=== PATIENT | male | born 1975 | race Two or more races ===

== ENCOUNTER 2019-08-12 09:43 | Emergency (ER) | payer OTHER ==
[~2019-08-12] VITALS: Ht 167.6 cm; Wt 72.6 kg
[2019-08-12] MEDS ORDERED: IV NORMAL SALINE 1,000ML 1,000 ML IV ONE (10:00)
--- NOTE | 2019-08-12 10:03 | PHYS DOC ---
Past History Past Medical History: High Cholesterol Past Surgical History: No Surgical History Smoking: Cigarettes Alcohol Use: None Drug Use: None Adult General Chief Complaint Chief Complaint: NAUSEA/VOMITING/DIARRHEA HPI HPI 44-year-old male presents to the emergency department with complaints of feeling sick. Patient states he's had nausea and vomiting since yesterday, describes approximately 23 times. He denies any diarrhea, no fever, no chills. Patient denies any drug use or alcohol use. He does smoke tobacco. Patient denies abdominal pain on examination, no chest pain, no shortness of breath. Nothing makes symptoms worse or better Review of Systems Review of Systems Constitutional: Denies fever or chills [] HENT: Denies nasal congestion or sore throat [] Respiratory: Denies cough or shortness of breath [] Cardiovascular: No additional information not addressed in HPI [] GI: Denies abdominal pain, + nausea, vomiting : Denies dysuria or hematuria [] Musculoskeletal: Denies back pain or joint pain [] Integument: Denies rash or skin lesions [] Neurologic: Denies headache, focal weakness or sensory changes [] All other systems were reviewed and found to be within normal limits, except as documented in this note. Current Medications Current Medications Current Medications Medications (Trade) Dose Ordered Sig/Vj Start Time Stop Time Status Last Admin Dose Admin Sodium Chloride 1,000 ml @ 1,000 mls/hr 1X ONCE 08/12/19 10:00 08/12/19 10:59 UNV Physical Exam Physical Exam Constitutional: Well developed, well nourished, no acute distress, tired appearing HENT: Normocephalic, atraumatic, bilateral external ears normal, oropharynx moist, no oral exudates, nose normal. [] Eyes: PERRLA, EOMI, conjunctiva normal, no discharge. [] Neck: Normal range of motion, no tenderness, supple, no stridor. [] Cardiovascular:Heart rate regular rhythm, no murmur [] Lungs & Thorax: Bilateral breath sounds clear to auscultation [] Abdomen: Bowel sounds normal, soft, no tenderness, no masses, no pulsatile masses. [] Skin: Warm, dry, no erythema, no rash. [] Back: No tenderness, no CVA tenderness. [] Extremities: No tenderness, no cyanosis, no clubbing, ROM intact, no edema. [] Neurologic: Alert and oriented X 3, normal motor function, normal sensory function, no focal deficits noted. [] Psychologic: Affect normal, judgement normal, mood normal. [] Current Patient Data Vital Signs BP initially 88/59 however improved after IVF 1 liter 103/80. No tachycardia appreciated EKG EKG [] Radiology/Procedures Radiology/Procedures [] Course & Med Decision Making Course & Med Decision Making Pertinent Labs and Imaging studies reviewed. (See chart for details) []44-year-old male presents to the emergency department with complaints of feeling sick. Patient states he's had nausea and vomiting since yesterday, describes approximately 23 times. He denies any diarrhea, no fever, no chills. P atient denies any drug use or alcohol use. He does smoke tobacco. Patient denies abdominal pain on examination, no chest pain, no shortness of breath. Nothing makes symptoms worse or better. Patient received 1 L fluid pressure is 90-116, he has had no vomiting or complaints of nausea and emergency department since his arrival. Patient states he is unable to provide urine for UDS/UA. At this time he states he feels better and comfortable with dc. Dragon Disclaimer Dragon Disclaimer This electronic medical record was generated, in whole or in part, using a voice recognition dictation system. Departure Departure: Impression: Primary Impression: Nausea & vomiting Additional Impression: Weakness Disposition: 01 HOME, SELF-CARE Condition: IMPROVED Referrals: PCP,NO (PCP) Patient Instructions: Nausea and Vomiting, [id number] Additional Instructions: Labs reviewed without acute concern No medications provided in ER as patient did not have emesis Return to outpatient setting, follow up with PCP as needed Clearly if further concern of altered mental status, return to the ER for further evaluation. Problem Qualifiers Primary Impression: Nausea & vomiting Vomiting type: unspecified Vomiting Intractability: non-intractable Qualified Codes: R11.2 - Nausea with vomiting, unspecified PAULA GRANT MD Aug 12, 2019 10:03
[2019-08-12 10:37] LABS: ACETAMIN < 2.0 mcg/mL (10-30); SALIC 2.5 mg/dL (2.8-20.0)
[2019-08-12 10:38] LABS: ETHANOL < 10 mg/dL (0-10)
[2019-08-12 10:44] LABS: ALBUMIN 3.9 g/dL (3.4-5.0); ALBUMIN/GLOBULIN RATIO 1.3 (1.0-1.7); CALCIUM 8.4 mg/dL (8.5-10.1); CREATININE 0.9 mg/dL (0.7-1.3); GFR 91.7; POTASSIUM 4.1 mmol/L (3.5-5.1); TOTAL BILIRUBIN 0.2 mg/dL (0.2-1.0)
[2019-08-12 10:48] LABS: BASO # 0.1 x10^3/uL (0.0-0.2); BASO % 1 % (0-3); EOS % 0 % (0-3); HEMATOCRIT 40.5 % (39.0-53.0); LYMPH % 19 % (24-48); MEAN CORPUSCULAR HEMOGLOBIN 30 pg (25-35); MEAN CORPUSCULAR HGB CONC 35 g/dL (31-37); MEAN CORPUSCULAR VOLUME 86 fL (79-100); MONO # 0.8 x10^3/uL (0.0-1.1); MONO % 7 % (0-9); NEUT # 7.8 x10^3uL (1.8-7.7); NEUT % 73 % (31-73); PLATELET COUNT 408 x10^3/uL (140-400); RED BLOOD COUNT 4.69 x10^6/uL (4.30-5.70); RED CELL DISTRIBUTION WIDTH 13.4 % (11.5-14.5); WHITE BLOOD COUNT 10.7 x10^3/uL (4.0-11.0)
[2019-08-12 11:29] VITALS: BP 111/66
== END 2019-08-12 11:30 | disposition home or self-care (01) ==
LOC: ER 09:43
DX: R11.2 Nausea with vomiting, unspecified (principal); R53.1 Weakness; E78.00 Pure hypercholesterolemia, unspecified; F17.210 Nicotine dependence, cigarettes, uncomplicated
CPT/HCPCS: 36415; 80053; 80329; 83605; 85025; 96360; 99284; G0480; 82003; J7030